=== PATIENT | male | born 1970 | race Caucasian/White ===

== ENCOUNTER 2022-06-27 01:47 | Day surgery (SDC) | payer OTHER, SELFPAY ==
[2022-06-17 11:12] VITALS: BMI 25.8
[2022-06-27 07:37] VITALS: BP 150/105; PULSE 82; RESP 18; TEMP 36.6; O2SAT 100
[2022-06-27] MEDS: LACTATED RINGERS 1,000 ML 150 ML IV CONT (07:52)
--- NOTE | 2022-06-27 08:10 | P.PNAN_ITS ---
Anes - Initial Pre Proc Eval Procedure: Operation Date: 06/27/22 09:00 Proposed Procedures p Screening Colonoscopy - Nicholas Griffin MD Date/Time: 06/27/22 08:10 Surgeon: Nicholas Griffin MD Pre Op Diagnosis: neoplasm screening Patient Data Age: 51 Gender: M Height: 1.83 m Weight: 86.6 kg Last Vital Signs Temp 97.8 F 06/27/22 07:37 Pulse 82 06/27/22 07:37 Resp 18 06/27/22 07:37 BP 150/105 H 06/27/22 07:37 Pulse Ox 100 06/27/22 07:37 O2 Del Method Room Air 06/27/22 07:37 Allergies Allergy/AdvReac Type Severity Reaction Status Date / Time No Known Allergies Allergy Verified 06/27/22 07:36 Home Medications Medication Instructions Recorded Confirmed Type atorvastatin 20 mg tablet 20 mg PO DAILY #90 tabs 12/31/21 06/17/22 Rx enalapril maleate 20 mg tablet 20 mg PO DAILY #90 tabs 12/31/21 06/17/22 Rx Patient hx anesthesia problems: none Family hx anesthesia problems: none Results Review: All pre-operative results and documents have been reviewed as part of the pre- operative evaluation. [facility] Past Medical History Medical History (Updated 04/01/22 @ 16:52 by Anu Lake PA-C) Colon polyps Hyperlipidemia Hypertension Surgical History Surgical History (Updated 07/12/21 @ 11:00 by Rylie Leonard CMA) Cataract H/O colonoscopy Family History Family History Mother Myasthenia gravis Father Hypertension Diabetes mellitus Social History Social History Years smoked: 30 Smoking status: Former smoker Tobacco type: cigarettes Smoking end date: 05/14/18 Alcohol intake: current Drinks per week: 8 Substance use: never Substance use type: does not use Living arrangements: with family Occupation/Education: occupation 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 Informed Consent: The patient's anesthetic plan and its attendant risks and benefits were discussed with the patient/family/POA. Questions were solicited and answers provided to the satisfaction of the patient/family/POA.
--- NOTE | 2022-06-27 08:15 | PM.HPGS ---
History of Present Illness History of Present Illness Consent: Risks, benefits, and alternatives have been discussed and questions answered. Patient agrees to proceed with procedure. Chief complaint: neoplasm screening Narrative: Salvatore Will is a 51 year old male with colon polyps in 2019 Review of Systems Constitutional: Constitutional: Denies headache(s) and Denies weakness Eyes: Eyes: Denies blurry vision ENT: Reports Normal hearing present, Denies headache(s) and Denies neck pain Cardiovascular: Cardiovascular: Denies chest pain and Denies dyspnea Respiratory: Respiratory: Denies dyspnea Gastrointestinal: Gastrointestinal: Reports no additional gastrointestinal complaints Genitourinary: Genitourinary: Denies dysuria Musculoskeletal: Musculoskeletal: Denies neck pain Integumentary/Breasts: Skin/Breast: Denies dry skin Neurologic: Reports Normal hearing present, Denies headache(s) and Denies weakness Psychiatric: Psychiatric: Denies anxiety Endocrine: Endocrine: Denies change in body appearance Hematologic/Lymphatic: Hematologic/Lymphatic: Denies easy bleeding Allergic/Immunologic: Allergic/Immunologic: Denies urticaria PMF Past Medical History Medical History (Updated 06/27/22 @ 08:16 by Nicholas Griffin MD) Adenomatous colon polyp Colon polyps Hyperlipidemia Hypertension Surgical History Surgical History (Updated 07/12/21 @ 11:00 by Rylie Leonard CMA) Cataract H/O colonoscopy Family History Family History Mother Myasthenia gravis Father Hypertension Diabetes mellitus Social History Social History Years smoked: 30 Smoking status: Former smoker Tobacco type: cigarettes Smoking end date: 05/14/18 Alcohol intake: current Drinks per week: 8 Substance use: never Substance use type: does not use Living arrangements: with family Occupation/Education: occupation 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 Gender identity (if verbalized by the patient): Male Spiritual care concerns: No Agree to blood products: Yes Meds Home Medications and Allergies Home Medications Medication Instructions Recorded Confirmed Type atorvastatin 20 mg tablet 20 mg PO DAILY #90 tabs 12/31/21 06/17/22 Rx enalapril maleate 20 mg tablet 20 mg PO DAILY #90 tabs 12/31/21 06/17/22 Rx Allergies Allergy/AdvReac Type Severity Reaction Status Date / Time No Known Allergies Allergy Verified 06/27/22 07:36 Vital Signs Vital Signs - 24 hr 06/27/22 07:37 Temperature 97.8 F Pulse Rate 82 Respiratory Rate 18 Blood Pressure 150/105 H Pulse Oximetry 100 Oxygen Delivery Room Air Exam Const: General: comfortable and no acute distress HENMT: Face/Nose/Sinus: Normal nares present Eyes: General: appearance normal, both eyes and all related structures Neck: Neck: no JVD Resp: Auscultation: clear to auscultation bilaterally Cardio: Rate: regular rate Rhythm: regular rhythm GI: Inspection: non-distended GI Palp: Yes Soft to palpation Skin: General skin exam: normal color Neuro: General: gait normal Speech: normal speech Extrem: General: normal to inspection Psych: Mental Status: mental status grossly normal Assessment and Plan Assessment and plan (1) Adenomatous colon polyp: Code(s): D12.6 - Benign neoplasm of colon, unspecified Status: Acute Assessment and Plan: colonoscopy (2) Family history of colon cancer: Code(s): Z80.0 - Family history of malignant neoplasm of digestive organs Status: Acute
[2022-06-27 08:43] VITALS: BP 112/71; PULSE 72; RESP 18; O2SAT 99
[2022-06-27 08:53] VITALS: BP 136/86; PULSE 72; RESP 18; O2SAT 99
[2022-06-27 09:03] VITALS: BP 146/64; PULSE 74; RESP 18; O2SAT 99
== END 2022-06-27 09:10 | disposition home or self-care (01) ==
PROVIDERS: Visit Provider Internal Medicine Gastroenterology
PROC: 0DJD8ZZ Inspection of Lower Intestinal Tract, Via Natural or Artificial Opening Endoscopic (ICD-10-PCS; CPT 45378; principal; 2022-06-27 09:00)
DX: Z12.11 Encounter for screening for malignant neoplasm of colon (principal); K64.8 Other hemorrhoids; Z86.010 Personal history of colon polyps; Z80.0 Family history of malignant neoplasm of digestive organs; I10 Essential (primary) hypertension; E78.5 Hyperlipidemia, unspecified; Z87.891 Personal history of nicotine dependence
CPT/HCPCS: 45378; J2704; J7120

== ENCOUNTER 2023-05-05 10:40 | Outpatient (CLI) | payer OTHER, SELFPAY ==
[2023-05-05 14:22] LABS: Hematocrit 44.2 % (42.0-52.0); Hemoglobin 14.9 g/dL (14.0-18.0); Mean Corpuscular HGB Conc 33.7 g/dl (32-36); Mean Corpuscular Hemoglobin 28.9 pg (26-34); Mean Corpuscular Volume 85.7 fl (80-100); Mean Platelet Volume 11.3 fl (7.4-10.4); Platelet Count Result 263 k/mm3 (150-375); Red Blood Count 5.16 M/mm3 (4.6-6.20); Red Cell Distribution Width 12.9 % (11.5-14.5); White Blood Count 7.2 K/mm3 (4.5-10.0)
[2023-05-05 14:54] LABS: Alanine Aminotransferase 19 U/L (6-50); Albumin Level 4.6 g/dL (3.5-5.1); Alkaline Phosphatase 93 U/L (38-126); Anion Gap 5 mmol/L (8-16); Aspartate Amino Transferase 75 U/L (17-59); Bilirubin,Total 0.8 mg/dL (0.2-1.3); Blood Urea Nitrogen 14 mg/dL (9-20); Calcium 9.2 mg/dL (8.4-10.2); Carbon Dioxide 28 mmol/L (22-30); Chloride 101 mmol/L (98-107); Cholesterol 268 mg/dL (0-200); Estimated Glomerular Filt Rate > 60; Glucose 90 mg/dL (65-110); HDL Direct 49 mg/dL; Potassium 4.5 mmol/L (3.4-5.0); Sodium 134 mmol/L (137-145); Triglycerides 157 mg/dL (<150)
[2023-05-05 15:06] LABS: LDL Cholesterol Direct 162 mg/dL
[2023-05-05 15:25] LABS: Prostate Specific Antigen 0.5 ng/mL (< OR = 4.0); Thyroid Stimulating Hormone 0.796 uIU/mL (0.465-4.680)
== END 2023-05-05 10:41 | disposition home or self-care (01) ==
LOC: ANHGOSHLAB 10:41
PROVIDERS: PCP Family Medicine; Visit Provider Family Medicine
DX: E78.5 Hyperlipidemia, unspecified (principal); I10 Essential (primary) hypertension; Z79.899 Other long term (current) drug therapy; Z12.5 Encounter for screening for malignant neoplasm of prostate
CPT/HCPCS: 36415; 80053; 80061; 84153; 84443; 85027; G0103

== ENCOUNTER 2024-09-19 08:08 | Emergency (ER) | payer BC, SELFPAY ==
--- OUTSIDE RECORDS SUMMARY | 2024-09-19 08:11 | XMS_ITS | Clinical Summary ---
Author Organization [facility] Address [address] [place] [id number] Care Team Providers Care Hand Sewer Shoes Name Role Phone None, Provider MD Primary Care Provider Unavaila ble Allergies No known active allergies Medications fluticasone propionate (FLONASE) 50 MCG/ACT nasal spray 1 spray by Nasal route daily. 16 g 12/20/2018 Active Social History Tobacco Use Types Packs/Day Years Used Date Smoking Tobacco: Former Cigarettes Q uit: 06/20/2018 Smokeless Tobacco: Never Alcohol Use Standard Drinks/Week Comments Yes 0 (1 standard drink = 0.6 oz pur e alcohol) socially AUDIT-C Answer Date Recorded Frequency of Alcohol Consumption Never 12/20/2018 Average Number of Drinks Not on file 019 Frequency of Binge Drinking Not on file 09/2018 Sex and Gender Information Value Date Recorded Sex Assigned at Not on file Legal Sex Male 8:40 PM CDT Gender Identity Not on file Sexual Orientation Not on file Last Filed Vital Signs Vital Sign Reading Time Taken Comments Blood Pressure 159/108 01/11/2019 4:58 AM CDT Pulse 79 01/11/2019 4:58 AM CDT Temperature 36.7 C (98.1 F) 01/11/2019 4:41 AM CDT Respiratory Rate 18 01/11/2019 4:58 AM CDT Oxygen Saturation 98% 01/11/2019 4:58 AM CDT Inhaled Oxygen Concentration - - Weight 72.6 kg (160 lb) 01/11/2019 4:41 AM CDT Height 185.4 cm (6' 1) 01/11/2019 4:41 AM CDT Body Mass Index 21.11 01/11/2019 4:41 AM CDT Plan of Treatment Health Maintenance Due Date Last Done Comments Colorectal Cancer Screening Colonoscopy (10 Years) 1971 Annual Physical 09/26/1974 Hepatitis C 09/26/1989 DTaP, Tdap and Td Vaccines ( 1 - Tdap) 09/26/1990 Hepatitis B Vaccines (1 of 3 - 19+ 3-dose series) 09/26/1990 Pneumococcal Vaccine: 50+ Ye ars (1 of 1 - PCV) 09/26/2021 Zoster Vaccines (1 of 2) 09/26/2021 COVID-19 Vaccine (1 - 2023-2 5 season) 2023 Meningococcal B Vaccine Aged Out No l onger eligible based on patient's age to complete this topic Meningococcal Vaccine Aged Out No kaylyn jenaro eligible based on patient's age to complete this topic RSV Immunizations Under 20 Months Aged Out No longer eligible based on patient's age to complete this topic Insurance [facility] Care Teams Hand Sewer Shoes Relationship Specialty Start Date End Date None, Provider, PCP - General 12/20/18
[2024-09-19 08:13] VITALS: BP 134/88; PULSE 84; RESP 16; TEMP 36.3; O2SAT 97
--- NOTE | 2024-09-19 08:23 | ED.GENADULT ---
HPI - General Adult General Chief complaint: Skin/Abscess/Foreign Body Stated complaint: Shingles History of Present Illness HPI narrative: Salvatore Will is a 53 y/o male who presents with vesicular rash to the left flank area concerned for shingles. He reports slight itching and pain to area but has been using lidocaine spray that has been helping with the pain. He believes he may have had a fever earlier in this process. Denies any other symptoms. Related Data Allergies Allergy/AdvReac Type Severity Reaction Status Date / Time No Known Allergies Allergy Verified 09/19/24 08:18 Review of Systems Review of Systems: All systems reviewed & are unremarkable except as noted in HPI and below PMFSH Past Medical History Medical History Adenomatous colon polyp Hyperlipidemia Colon polyps Hypertension Surgical History Surgical History H/O colonoscopy Cataract Family History Family History Mother Myasthenia gravis Father Hypertension Diabetes mellitus Social History Social History Social History: Caffeine-coffee Years smoked: 30 Smoking status: Former smoker Tobacco type: cigarettes Smoking end date: 05/14/18 Alcohol intake: current Drinks per week: 8 Alcohol use details: Beer Substance use: never Substance use type: does not use Living arrangements: with family Occupation/Education: occupation 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 HEAD: Normocephalic, atraumatic. EYES: PERRLA and EOMI. ENT: Nares clear, no rhinorrhea or epistaxis. Mucous membranes moist. Oropharynx without tonsillar hypertrophy exudate or other lesions. NECK: Supple. No adenopathy or masses. No carotid bruits or JVD CHEST: Clear to auscultation. No respiratory distress. No wheezes rales or rhonchi HEART: Regular rate and rhythm. No murmur heard. Normal peripheral pulses. EXTREMITIES: Normal range of motion. SKIN: Vesicular rash following a dermatomal distribution to the left flank area NEURO: No focal deficits. Alert and oriented x3. PSYCH: Normal mood and affect. Course Course Level of Care: Express Care Visit Vital Signs Vital signs: Vital Signs Temperature 36.3 C L 09/19/24 08:13 Pulse Rate 84 09/19/24 08:13 Respiratory Rate 16 09/19/24 08:13 Blood Pressure 134/88 09/19/24 08:13 Pulse Oximetry 97 09/19/24 08:13 Oxygen Delivery Room Air 09/19/24 08:13 Temperature 36.3 C L 09/19/24 08:13 Pulse Rate 84 09/19/24 08:13 Respiratory Rate 16 09/19/24 08:13 Blood Pressure 134/88 09/19/24 08:13 Pulse Oximetry 97 09/19/24 08:13 Oxygen Delivery Room Air 09/19/24 08:13 Medical Decision Making MDM Narrative Medical decision making narrative: Vesicular rash following a dermatomal distribution to the left flank area, this tino stated about 5-7 days ago but he does have some newer lesions forming across low back and on abdomen on the left side will start treatment with acyclovir 800 x5 a day for 7 days He denies needing anything further for pain Encouraged PCP follow up Medical Records Medical records reviewed: Yes I reviewed the external patient's medical records. Vital Signs Vital Signs: Vital Signs Temperature 36.3 C L 09/19/24 08:13 Pulse Rate 84 09/19/24 08:13 Respiratory Rate 16 09/19/24 08:13 Blood Pressure 134/88 09/19/24 08:13 Pulse Oximetry 97 09/19/24 08:13 Oxygen Delivery Room Air 09/19/24 08:13 Temperature 36.3 C L 09/19/24 08:13 Pulse Rate 84 09/19/24 08:13 Respiratory Rate 16 09/19/24 08:13 Blood Pressure 134/88 09/19/24 08:13 Pulse Oximetry 97 09/19/24 08:13 Oxygen Delivery Room Air 09/19/24 08:13 Vitals reviewed by me Discharge Plan Discharge Clinical Impression: Shingles Qualifiers: Herpes zoster complications: without complications Qualified Code(s): B02.9 - Zoster without complications Patient Disposition: Home Condition: Stable Instructions: Antibiotic Form Additional Instructions: Start taking the Acyclovir 5 times a day for 1 week Follow up with your PCP in 1 week to ensure this is improving If you develop any worsening symptoms, or if you develop any signs of the rash getting close to your eyes then go to the ER. Patient Language: Luxembourgish Prescriptions: New acyclovir 800 mg tablet 800 mg PO .5xday Qty: 35 0RF Rx Instructions: while awake; take 5 doses in 24 hours for 7 days No Action enalapril maleate 20 mg tablet 20 mg PO BID Qty: 180 1RF amlodipine 5 mg tablet 5 mg PO BID Qty: 180 1RF atorvastatin 40 mg tablet 40 mg PO QHS Qty: 90 1RF hydrochlorothiazide 25 mg tablet 25 mg PO DAILY Qty: 90 1RF Follow-up/Referrals: Gisela Joel DO [Primary Care Provider] - 1 Week Time of Disposition: 08:33
== END 2024-09-19 08:36 | disposition home or self-care (01) ==
PROVIDERS: Emergency Provider Nurse Practitioner Family; PCP Family Medicine
DX: B02.9 Zoster without complications (principal); I10 Essential (primary) hypertension; E78.5 Hyperlipidemia, unspecified; Z87.891 Personal history of nicotine dependence
CPT/HCPCS: 99213; G0463